=== PATIENT | female | born 1990 | race African-American/Black ===

== ENCOUNTER 2017-05-01 15:39 | Emergency (ER) | payer SELFPAY ==
[~2017-05-01] VITALS: Ht 162.6 cm; Wt 124.0 kg
[~2017-05-01 15:39] MED LIST: ALPRAZOLAM1 MG PO; AMOX TR-K CLV1 EAC4 PO; AUGMENTIN875 MG PO; ESCITALOPRAM OX10 MG PO; FLEXERIL10 MG PO; INDOCIN25 MG PO; INDOCIN50 MG PO; LAMICTAL25 MG PO; LEXAPRO10 MG PO; MOTRIN600 MG PO; MOTRIN800 MG PO; NORCO 5/3251 TABLET PO; PERCOCET 5/31 TABLET PO; PREDNISONE20 MG PO; TYLENOL REGULA325 MG PO; VALIUM5 MG PO; XANAX XR3 MG PO; ZYRTEC10 M2 PO
[2017-05-01] MEDS ORDERED: AZITHROMYCIN250 MG PO (15:51)
[2017-05-01 16:07] VITALS: BP 147/102
== END 2017-05-01 16:09 | disposition home or self-care (01) ==
LOC: EME 15:39
DX: J06.9 Acute upper respiratory infection, unspecified (principal); F17.200 Nicotine dependence, unspecified, uncomplicated; Z88.6 Allergy status to analgesic agent
CPT/HCPCS: 99281; 99283

== ENCOUNTER 2017-06-24 15:12 | Emergency (ER) | payer OTHER ==
[~2017-06-24] VITALS: Ht 162.6 cm; Wt 124.3 kg
[~2017-06-24 15:12] MED LIST changes: +AZITHROMYCIN250 MG PO
[2017-06-24 15:26] VITALS: BP 143/93
== END 2017-06-24 15:51 | disposition home or self-care (01) ==
LOC: EME 15:12
DX: H61.22 Impacted cerumen, left ear (principal); Z88.8 Allergy status to other drugs, medicaments and biological substances
CPT/HCPCS: 99281; 99284

== ENCOUNTER 2017-09-04 16:58 | Emergency (ER) | payer OTHER ==
[~2017-09-04] VITALS: Ht 162.6 cm; Wt 122.2 kg
[2017-09-04 17:19] VITALS: BP 151/100
[2017-09-04 18:17] LABS: HEMATOCRIT 30.9 % (36.0-46.0); HEMOGLOBIN 10.2 G/DL (11.9-15.5); MCH 30.4 PG (29.0-34.0); MCV 92.2 FL (83-99); PLATELET COUNT 262 K/uL (156-360); RBC DIS.WIDTH-CV 12.4 % (11.8-14.6); RBC DIS.WIDTH-SD 41.5 % (39-53); RED BLOOD COUNT 3.35 M/uL (3.80-5.20); WHITE BLOOD COUNT 5.4 K/uL (4.1-10.2)
== END 2017-09-04 23:47 | disposition left against medical advice (07) ==
LOC: EME 16:58
DX: N93.9 Abnormal uterine and vaginal bleeding, unspecified (principal); Z53.21 Procedure and treatment not carried out due to patient leaving prior to being seen by health care provider
CPT/HCPCS: 81003; 84702; 85027

== ENCOUNTER 2017-12-04 18:19 | Emergency (ER) | payer OTHER ==
[~2017-12-04] VITALS: Ht 162.6 cm; Wt 127.2 kg
[2017-12-04 19:18] LABS: HEMATOCRIT 27.3 % (36.0-46.0); HEMOGLOBIN 8.2 G/DL (11.9-15.5); MCH 22.8 PG (29.0-34.0); MCV 75.8 FL (83-99); PLATELET COUNT 371 K/uL (156-360); RBC DIS.WIDTH-CV 15.3 % (11.8-14.6); RBC DIS.WIDTH-SD 42.5 % (39-53); WHITE BLOOD COUNT 6.9 K/uL (4.1-10.2)
[2017-12-04 19:48] LABS: TROP-I INTERPRETATION NEGATIVE; TROPONIN-I < 0.01 ng/mL (0.0-0.30)
[2017-12-04 19:50] LABS: CHLORIDE 108 mEq/L (99-109); SODIUM 139 mEq/L (136-147)
[2017-12-04 19:51] LABS: GLUCOSE 122 mg/dL (70-99)
[2017-12-04 19:55] LABS: CREATININE 0.9 mg/dL (0.6-1.3); GFR ESTIMATE (CALCULATED) > 59 mL/min/
[2017-12-04 19:56] LABS: UREA NITROGEN (BUN) 15 mg/dL (9-23)
[2017-12-04 22:25] LABS: D-DIMER ELISA < 150.00 ng/mLDDU (<230)
[2017-12-04 22:55] LABS: QUANTITATIVE HCG < 4.0 MIU/ML
[2017-12-05 00:01] LABS: TROP-I INTERPRETATION NEGATIVE; TROPONIN-I < 0.01 ng/mL (0.0-0.30)
[2017-12-05 00:57] VITALS: BP 138/73
[2017-12-05 01:15] VITALS: BP 128/89
[2017-12-05 02:00] VITALS: BP 123/88
[2017-12-05 03:00] VITALS: BP 137/80
[2017-12-05 03:31] VITALS: BP 137/80
== END 2017-12-05 03:36 | disposition home or self-care (01) ==
LOC: EME 18:19
PROVIDERS: Physician Assistant
PROC: 30233N1 Transfusion of Nonautologous Red Blood Cells into Peripheral Vein, Percutaneous Approach (ICD-10-PCS; principal; 2017-12-04)
DX: D64.9 Anemia, unspecified (principal); F41.9 Anxiety disorder, unspecified; F32.9 Major depressive disorder, single episode, unspecified; F31.9 Bipolar disorder, unspecified; F17.200 Nicotine dependence, unspecified, uncomplicated; Z88.5 Allergy status to narcotic agent; Z88.8 Allergy status to other drugs, medicaments and biological substances
CPT/HCPCS: 71046; 80048; 84484; 84702; 85027; 85379; 86850; 86900; 86901; 86920; 93005; 99281; 99285; P9016